=== PATIENT | male | born 1980 | race Caucasian/White ===

== ENCOUNTER 2021-11-30 17:28 | Emergency (ER) | payer OTHER, SELFPAY ==
--- NOTE | ~2021-11-30 | CT_ITS ---
EXAMINATION: CT abdomen pelvis wo con DATE: 11/30/2021 18:31 INDICATION: right flank pain TECHNIQUE: Computed tomography (CT) of the abdomen and pelvis was performed without intravenous contr ast. Automated exposure control and iterative reconstruction technique were employed. The dose-length product was 477.37 mGy-cm. COMPARISON: None FINDINGS: Lower thorax: Unremarkable Liver: Normal. Biliary/Gallbladder: No bile duct dilation. Pancreas: No mass or duct dilation. Spleen: Normal. Adrenals:No mass. Kidneys: No mass. Punctate nonobstructing bilateral renal calculi, more numerous on the right. Modera te right pelvis and calyceal dilation. 5 mm rounded calcification in the mid right ureter. GI tract: No small or large bowel dilation. Normal appendix. Mesentery/Peritoneum: No ascites, mass, or free air. Retroperitoneum: No mass. Pelvis: Pelvic organs are within normal limits. Soft Tissues: Fat-containing umbilical, midline ventral, and bilateral inguinal hernias. Bones: No acute osseous finding. IMPRESSION: 5 mm mid right ureteral stone causing moderate obstructive uropathy. Reviewed, dictated and finalized at location K.
[2021-11-30 17:37] VITALS: BP 149/97; PULSE 74; RESP 18; TEMP 36.4; O2SAT 100
[2021-11-30 18:16] LABS: Appearance Urine Clear (Clear); Bilirubin Urine Negative (Negative); Blood Urine 2+ (Negative); Color Urine Yellow (Yellow); Glucose Urine UA Negative (Negative); Ketones Urine Negative (Negative); Leukocyte Esterase Ur Negative LEU/UL (Negative); Nitrate Urine Negative (Negative); Protein Urine Negative (Negative); Specific Grav Ur 1.015 (1.001-1.035); Urobilinogen Urine 0.2 mg/dL (<2.0); pH Urine 5.5 (5.0-9.0)
--- NOTE | 2021-11-30 18:22 | ED.MALEGU ---
HPI - Male Genitourinary General Chief complaint: Urogenital-Male <Mick Alvarez APRN - Last Filed: 11/30/21 19:39> Stated complaint: kidney stones <Mick Alvarez APRN - Last Filed: 11/30/21 19:39> Time Seen by Provider: 11/30/21 18:17 <Mick Alvarez APRN - Last Filed: 11/30/21 19:39> History of Present Illness HPI Narrative: 41-year-old male presents to the emergency room for evaluation of right flank pain since yesterday patient has a significant history of kidney stones, requiring lithotripsy and stent placement. Patient states that he normally drinks a gallon of water when he feels like he is having a kidney stone, however this time he became nauseated was unable to keep fluids down. Patient notes a obvious hematuria. Denies fever <Mick Alvarez APRN - Last Filed: 11/30/21 19:39> Related Data Allergies/Adverse reactions: Allergies Allergy/AdvReac Type Severity Reaction Status Date / Time No Known Allergies Allergy Verified 11/30/21 18:44 <Mick Alvarez APRN - Last Filed: 11/30/21 19:39> Review of Systems Review of Systems: CONSTITUTIONAL: Denies fever, chills, or sweats. EYES: Denies visual changes, redness, or discharge. ENT: Denies rhinorrhea, congestion, sore throat, or otalgia. CARDIOVASCULAR: Denies chest pain, palpitations, or edema. RESPIRATORY: Denies cough or dyspnea. GASTROINTESTINAL: Denies abdominal pain, nausea, vomiting, or diarrhea. GENITOURINARY: Reports right flank pain, hematuria SKIN: Denies rash or itching. MUSCULOSKELETAL: Denies back pain, joint pain, or myalgia. NEUROLOGIC: Denies headache, numbness, dizziness, or weakness. PSYCHIATRIC: Denies anxiety or depression. <Mick Alvarez APRN - Last Filed: 11/30/21 19:39> Exam Narrative: GENERAL: Well-appearing, well-nourished, and in no acute distress. HEAD: Normocephalic, atraumatic. EYES: PERRLA and EOMI. CHEST: Clear to auscultation. No respiratory distress. No wheezes rales or rhonchi HEART: Regular rate and rhythm. No murmur heard. Normal peripheral pulses. ABDOMEN: Right CVA tenderness EXTREMITIES: Normal range of motion. No edema. SKIN: Warm, dry, no rash. NEURO: No focal deficits. Alert and oriented x3. PSYCH: Normal mood and affect. <Mick Alvarez APRN - Last Filed: 11/30/21 19:39> Course Course Emergency Course: 1929: Discussed case with Dr. Quispe, he is agreeable to having patient follow-up with urology in 1 week. <Mick Alvarez SOFTWARE CONTROLS ENGINEER - Last Filed: 11/30/21 19:39> Vital Signs Vital signs: Vital Signs Temperature 97.6 F 11/30/21 17:37 Pulse Rate 74 11/30/21 17:37 Respiratory Rate 18 11/30/21 17:37 Blood Pressure 149/97 H 11/30/21 17:37 Pulse Oximetry 100 11/30/21 17:37 Temperature 97.6 F 11/30/21 17:37 Pulse Rate 73 11/30/21 18:48 Respiratory Rate 15 11/30/21 18:48 Blood Pressure 132/89 11/30/21 18:48 Pulse Oximetry 96 11/30/21 18:48 <Mick Alvarez SOFTWARE CONTROLS ENGINEER - Last Filed: 11/30/21 19:39> MDM - Male Genitourinary MDM Narrative Medical decision making narrative: 41-year-old male with a history of kidney stones presents the emergency room with evaluation for right flank pain. CT scan shows a 5 mm mid ureteral stone with moderate hydronephrosis. CBC shows a mild leukocytosis of 14, kidney function unremarkable, UA shows no urinary tract infection. Discussed case with Dr. Quispe. He recommends patient follow-up with urology in 1 week, go home with a strainer. Return if symptoms do not improve. <Mick Alvarez APRN - Last Filed: 11/30/21 19:39> Lab Data Result diagrams: : 11/30/21 18:36 11/30/21 18:36 <Mick Alvarez APRN - Last Filed: 11/30/21 19:39> Labs: Lab Results 11/30/21 11/30/21 11/30/21 Range/Units 17:50 18:36 18:36 WBC 14.0 H (4.5-10.0) K/mm3 RBC 5.31 (4.6-6.20) M/mm3 Hgb 14.7 (14.0-18.0) g/dL Hct 44.8 (42.0-52.0) % MCV 84.4 (
[2021-11-30 18:43] LABS: Bacteria Urine Trace /hpf; Mucus Urine Rare /lpf
[2021-11-30] MEDS: KETOROLAC 30 MG/ML VIAL (*BKC) IV PUSH (18:45)
[2021-11-30] MEDS: SODIUM CHLORIDE 0.9% IV 1,000 ML 999 ML IV CONT (18:45)
[2021-11-30] MEDS: Please add drug allergy info to patient profile. 1 EACH XX (18:45)
[2021-11-30] MEDS: ONDANSETRON INJ 4 MG/2 ML VIAL IV PUSH (18:45)
[2021-11-30 18:46] LABS: Add Urine Microscopic? YES
[2021-11-30 18:47] LABS: Basophils Absolute Auto 0.1 K/mm3 (0.0-0.1); Basophils Percent Auto 0.4 % (0.2-1.2); Eosinophils Percent Auto 0.2 % (0-4.4); Hematocrit 44.8 % (42.0-52.0); Hemoglobin 14.7 g/dL (14.0-18.0); Immature Granulocyte Absolute 0.06 K/mm3 (0.00-0.031); Immature Granulocyte Percent A 0.4 % (0-0.5); Lymphocytes Percent Auto 7.1 % (18.3-44.2); Mean Corpuscular HGB Conc 32.8 g/dl (32-36); Mean Corpuscular Hemoglobin 27.7 pg (26-34); Mean Corpuscular Volume 84.4 fl (80-100); Mean Platelet Volume 11.9 fl (7.4-10.4); Monocytes Absolute Auto 0.7 K/mm3 (0.1-0.6); Monocytes Percent Auto 4.9 % (2.6-8.5); Neutrophils Absolute Auto 12.2 K/mm3 (1.3-6.7); Platelet Count Result 187 k/mm3 (150-375); Red Blood Count 5.31 M/mm3 (4.6-6.20); Red Cell Distribution Width 13.1 % (11.5-14.5)
[2021-11-30 18:48] VITALS: BP 132/89; PULSE 73; RESP 15; O2SAT 96
[2021-11-30 19:10] LABS: Alanine Aminotransferase 22 U/L (6-50); Albumin Level 4.3 g/dL (3.5-5.1); Alkaline Phosphatase 63 U/L (38-126); Anion Gap 7 mmol/L (8-16); Aspartate Amino Transferase 28 U/L (17-59); Bilirubin,Total 0.6 mg/dL (0.2-1.3); Blood Urea Nitrogen 13 mg/dL (9-20); Calcium 8.8 mg/dL (8.4-10.2); Carbon Dioxide 24 mmol/L (22-30); Chloride 105 mmol/L (98-107); Estimated CRCL calculation 145 ml/min; Estimated Glomerular Filt Rate > 60; Glucose 115 mg/dL (65-110); Potassium 4.1 mmol/L (3.4-5.0); Sodium 136 mmol/L (137-145)
== END 2021-11-30 20:16 | disposition home or self-care (01) ==
LOC: ANHED 19:34
PROVIDERS: Emergency Medicine; Emergency Provider Nurse Practitioner Family; PCP Internal Medicine
DX: N20.0 Calculus of kidney (principal)
CPT/HCPCS: 36415; 74176; 80053; 81001; 85025; 96361; 96374; 96375; 99284; J1885; J2405; J7030

== ENCOUNTER 2021-12-06 15:01 | Outpatient (CLI) | payer OTHER, SELFPAY ==
--- NOTE | ~2021-12-06 | XR_ITS ---
XR abdomen/kub 1V 12/06/2021 15:17 INDICATION: Right ureteral stone TECHNIQUE: KUB COMPARISON: None FINDINGS: Bowel gas pattern is normal. There is no evidence of free air, mass, organomegaly, ascites or obstruction. No abnormal calculi are seen. The bones appear intact. IMPRESSION: 1: No acute abdominal abnormality identified. Reviewed, dictated and finalized at location A.
== END 2021-12-06 15:02 | disposition home or self-care (01) ==
PROVIDERS: PCP Internal Medicine; Visit Provider Urology
DX: N20.1 Calculus of ureter (principal)
CPT/HCPCS: 74018

== ENCOUNTER 2021-12-07 14:25 | Outpatient (CLI) | payer OTHER, SELFPAY ==
--- NOTE | ~2021-12-07 | XR_ITS ---
XR abdomen/kub 1V 12/07/2021 14:42 INDICATION: Right ureteral stone TECHNIQUE: KUB COMPARISON: 12/06/2021 FINDINGS: Bowel gas pattern is normal. There is no evidence of free air, mass, organomegaly, ascites or obstruction. No abnormal calculi are seen. The bones appear intact. IMPRESSION: 1: No acute abdominal abnormality identified. Reviewed, dictated and finalized at location A.
--- NOTE | ~2021-12-07 | CT_ITS ---
EXAMINATION: CT abdomen pelvis wo con DATE: 12/07/2021 14:46 INDICATION: Right flank pain and hematuria TECHNIQUE: Computed tomography (CT) of the abdomen and pelvis was performed without intravenous contr ast. Automated exposure control and iterative reconstruction technique were employed. The dose-length product was 485.23 mGy-cm. COMPARISON: None FINDINGS: Lung bases are clear. Heart size is normal. No pericardial or pleural effusion. Liver, gallbladder, s pleen, pancreas, bilateral adrenal glands are normal. A couple 1-2 mm nonobstructing stones in a lowe r pole calyx of the left kidney. 2-3 mm stone in the mid right ureter with mild right hydronephrosis. There are 4 additional 102 mm stones in the right kidney. Decompressed bladder is normal. Bowels inc luding the appendix are normal. No free intraperitoneal gas or fluid. No pathologically enlarged abdo ronal or pelvic lymphadenopathy. Small fat-containing umbilical and supraumbilical ventral hernias. 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 IMPRESSION: 1. Bilateral nephrolithiasis with fat least partially obstructing 2-3 mm mid right ureteral stone wit h mild right hydronephrosis. Reviewed, dictated and finalized at location B. IMPRESSION: 1. Bilateral nephrolithiasis with fat least partially obstructing 2-3 mm mid ri ght ureteral stone with mild right hydronephrosis.
== END 2021-12-07 14:26 | disposition home or self-care (01) ==
PROVIDERS: PCP Internal Medicine; Visit Provider Urology
DX: N20.0 Calculus of kidney (principal)
CPT/HCPCS: 74018; 74176

== ENCOUNTER 2022-06-26 10:24 | Outpatient (CLI) | payer OTHER, SELFPAY ==
--- NOTE | ~2022-06-26 | XR_ITS ---
Supine and upright views of the abdomen Clinical history: Right ureteral stone COMPARISON: 12/07/2021 Findings: Bowel gas pattern is nonspecific. No evidence for obstruction or free air. No abnormal mass lesion or calcification is seen. Osseous structures are intact. Impression: No significant abnormality is seen. Reviewed, dictated and finalized at [facility]. ER Impression: No significant abnormality is seen.
== END 2022-06-26 10:25 | disposition home or self-care (01) ==
PROVIDERS: PCP Internal Medicine; Visit Provider Urology
DX: N20.1 Calculus of ureter (principal)
CPT/HCPCS: 74018

== ENCOUNTER 2022-07-24 14:59 | Emergency (ER) | payer OTHER, SELFPAY ==
--- NOTE | ~2022-07-24 | XR_ITS ---
EXAM: XR toe 1st LT min 2V DATE: 07/24/2022 15:21 HISTORY: DROPPED TREADMILL ON DISTAL 1ST TOE . COMPARISON: None available. FINDINGS: Normal mineralization. Minimal comminution of the left first distal phalanx. No lytic or b lastic lesion. Scattered mild degenerative change. No erosion or periosteal change. Soft tissues with in normal limits. IMPRESSION: Minimally comminuted fractures of the left first distal phalanx. Reviewed, dictated and finalized at location K. WEIGHMASTER
--- NOTE | 2022-07-24 15:02 | ED.LOWEXIN ---
HPI - Extremity Injury (Lower) General Chief Complaint: Extremity Injury, Lower Stated Complaint: toe injury Time Seen by Provider: 07/24/22 15:26 Source: patient and RN notes reviewed Mode of arrival: ambulatory Limitations: no limitations History of Present Illness HPI Narrative: 41-year-old male presents with concern for injury to the 1st digit of the last foot. He reports yesterday he dropped a piece of equipment on the toe causing bruising and feeling of pressure on the nail. He reports worsening pain with weight-bearing. He denies any open skin. MD complaint: foot injury Related Data Allergies Allergy/AdvReac Type Severity Reaction Status Date / Time No Known Allergies Allergy Verified 07/24/22 15:02 Review of Systems Review of Systems: CONSTITUTIONAL: Denies malaise, chills, sweats, or fever. SKIN: Denies rash or itching, open skin, laceration, abrasion, redness, warmth, swelling. Reports discoloration under the toenail the 1st digit of loss MUSCULOSKELETAL: Reports pain in the 1st digit of the left foot NEUROLOGIC: Denies numbness, weakness All systems reviewed & are unremarkable except as noted in HPI and below PMFSH Comments At time of signature, agree with nursing past medical, surgical, social and family history. There is no relevant family history pertinent to the presenting complaint Exam Narrative: GENERAL: Well-appearing, well-nourished, and in no acute distress. HEAD: Normocephalic, atraumatic. EYES: PERRLA, conjunctivae clear NECK: Supple. CHEST: Speaks in full sentences. No respiratory distress. HEART: Regular rate and rhythm. Normal and equal peripheral pulses. EXTREMITIES: 1st digit of left foot has normal strength and sensation, grossly normal range of motion. No edema. Significant Ecchymosis she the 1st digit. 5/5 strength with digit flexion and extension. Normal sensation with sensitivity to light touch and pain. General digit tenderness. No open wounds, no skin tenting, no devitalized tissue or atrophy, no trophic changes, no obvious deformity, alignment normal, nearby joints and structures intact. Distal pulses palpable and equal bilaterally, skin warm, dry, pink. Capillary refill less than 3 seconds. SKIN: Warm, dry, no rash. Subungual hematoma noted to the 1st digit of the left foot NEURO: Alert and oriented x3. PSYCH: Normal mood and affect Course Course Emergency Course: After trephination Toe dalila-taped, patient wearing firm soled shoes. Discussed prophylactic antibiotic after trephination with fracture Patient is aware of diagnosis, understands and agrees to treatment plan. Anticipatory guidance given. Patient agrees to follow-up as directed and is aware of reasons to seek care at the emergency department. Portions of this record may have been created with voice recognition software Level of Care: Express Care Visit Vital Signs Vital signs: Reviewed. Procedures Nail Trephination Nail Trephination #1: Nail Trephination Date: 07/24/22 Nail Trephination Time: 15:29 Time out: Yes Location (toes): first digit Sterile prep: betadine Method of drainage: nail cautery Procedure successful: Yes Patient tolerated procedure: well MDM - Extremity Injury (Lower) MDM Narrative Medical decision making narrative: Patients injury and pain is consistent with musculoskeletal etiology. No signs of neurological or vascular compromise on exam. Compartments and tissues are soft without signs of compartment syndrome. Pain is felt appropriate for further evaluation on an outpatient basis. Critical Care Time Critical Care Time Critical Care Time: No Discharge Plan Discharge Clinical Impression: Subungual hematoma, Fracture of toe of left foot Patient Disposition: Home, Self-Care Condition: Stable Instructions: Subungual Hematoma (ED), Toe Fracture (ED) Additional Instructions: Avoid activities that cause pain until the pain subsid
[2022-07-24 15:05] VITALS: BP 136/97; PULSE 70; RESP 16; TEMP 36.6; O2SAT 99
== END 2022-07-24 15:48 | disposition home or self-care (01) ==
PROVIDERS: Emergency Provider Nurse Practitioner; PCP Internal Medicine
DX: S90.212A Contusion of left great toe with damage to nail, initial encounter (principal); S92.422A Displaced fracture of distal phalanx of left great toe, initial encounter for closed fracture; W20.8XXA Other cause of strike by thrown, projected or falling object, initial encounter
CPT/HCPCS: 11740; 73660; 99213; G0463

== ENCOUNTER → 2023-06-26 12:23 | Outpatient (CLI) | payer OTHER, SELFPAY ==
--- NOTE | ~2023-06-26 | XR_ITS ---
Supine and upright views of the abdomen Clinical history: Ureteral stone COMPARISON: 06/26/2022 Findings: Bowel gas pattern is nonspecific. No evidence for obstruction or free air. No abnormal mass lesion or calcification is seen. Osseous structures are intact. Impression: No significant abnormality is seen. Reviewed, dictated and finalized at [facility]. ON ACCOUNTANT Impression: No significant abnormality is seen.
== END ==
PROVIDERS: PCP Urology; Visit Provider Urology
DX: N20.1 Calculus of ureter (principal)
CPT/HCPCS: 74018

== ENCOUNTER 2024-06-30 17:29 | Emergency (ER) | payer OTHER, SELFPAY ==
--- NOTE | ~2024-06-30 | CT_ITS ---
EXAMINATION: CT abdomen pelvis wo con DATE: 06/30/2024 18:36 INDICATION: Right flank pain. TECHNIQUE: Computed tomography (CT) of the abdomen and pelvis was performed without intravenous contr ast. Automated exposure control and iterative reconstruction technique were employed. The dose-length product was 570.11 mGy-cm. COMPARISON: CT abdomen and pelvis 12/07/2021 FINDINGS: The visualized portions of the lung bases demonstrates 3 mm nodule in right lower lobe, lik ridge benign. No pleural effusion. The heart size is normal. No pericardial effusion. The liver, gallbl adder, spleen, pancreas, and adrenal glands are normal. There are two 1-2 mm stones in right kidney. There is moderate right hydronephrosis and proximal hydroureter. There is a 5 mm stone in proximal ri ght ureter. There is a 2 mm stone in left kidney. There is diverticulosis of the colon without eviden ce of diverticulitis. There are no dilated loops of bowel. The appendix is normal. There are no patho logically enlarged lymph nodes. There is no free intraperitoneal fluid. There are umbilical and supra umbilical ventral hernias containing fat. There is mild thoracic and lumbar spondylosis. IMPRESSION: 1. 5 mm stone in proximal right ureter with mild right hydronephrosis and proximal hydroureter. 2. Small bilateral nonobstructing kidney stones. 3. Umbilical hernia and supraumbilical ventral hernia containing fat. Reviewed, dictated and finalized at location A. D CUSTODY EVALUATOR IMPRESSION: 1. 5 mm stone in proximal right ureter with mild right hydronephrosis and proxi mal hydroureter. 2. Small bilateral nonobstructing kidney stones. 3. Umbilical hernia and supraumbilical ventral hernia containing fat.
--- NOTE | ~2024-06-30 | XR_ITS ---
EXAMINATION: XR abdomen/kub 1V DATE: 06/30/2024 21:23 INDICATION: Right renal stone. TECHNIQUE: A supine view of the abdomen on 2 radiographs was obtained. COMPARISON: CT abdomen and pelvis 06/30/2024 FINDINGS: There are no dilated loops of bowel. There are 5 mm and 2 mm stones in right ureter at L5. IMPRESSION: 1. 5 mm and 2 mm stones in proximal right ureter. Reviewed, dictated and finalized at location A. YL NITRATOR OPERATOR
[2024-06-30 18:22] VITALS: BP 185/87; PULSE 74; RESP 20; TEMP 36.7; O2SAT 100
--- NOTE | 2024-06-30 18:23 | ED.GENADULT ---
HPI - General Adult General Chief complaint: Back Pain/Injury <Sai Michelle APRN - Last Filed: 06/30/24 18:25> Stated complaint: KIDNEY STONES <Sai Michelle APRN - Last Filed: 06/30/24 18:25> Time Seen by Provider: 06/30/24 18:39 <Sai Michelle APRN - Last Filed: 06/30/24 18:25> 43 y/o male presents with right flank pain and n/v that started at 1300 today. patient has a hx of kidney stone and concerned he has another one. patient denies any other symptoms general: A&OX3 BS CTA ABD: soft, right cva tenderness ext: patient moving all extremities skin: warm and dry <Sai Michelle APRN - Last Filed: 06/30/24 18:25> History of Present Illness HPI narrative: Right flank pain moving and abdomen worsening over last few hours. Agree with HPI. <Fritz Shearer MD - Last Filed: 06/30/24 21:35> Related Data Allergies/adverse reactions: Allergies Allergy/AdvReac Type Severity Reaction Status Date / Time No Known Allergies Allergy Verified 06/30/24 17:29 <Sai Michelle APRN - Last Filed: 06/30/24 18:25> Review of Systems Review of Systems: All systems reviewed & are unremarkable except as noted in HPI and below <Fritz Shearer MD - Last Filed: 06/30/24 21:35> Constitutional: Constitutional: Reports no additional constitutional complaints <Fritz Shearer MD - Last Filed: 06/30/24 21:35> Cardiovascular: Cardiovascular: Reports no additional cardiovascular complaints <Fritz Shearer MD - Last Filed: 06/30/24 21:35> Respiratory: Respiratory: Reports no additional respiratory complaints <Fritz Shearer MD - Last Filed: 06/30/24 21:35> Gastrointestinal: Gastrointestinal: Reports abdominal pain, Denies diarrhea, Reports nausea and Reports vomiting <Fritz Shearer MD - Last Filed: 06/30/24 21:35> Genitourinary: Genitourinary: Reports no additional male genitourinary complaints <Fritz Shearer MD - Last Filed: 06/30/24 21:35> [facility] Past Medical History Medical History: Medical History (Updated 06/30/24 @ 21:32 by Fritz Shearer MD) Nephrolithiasis <Sai Michelle APRN - Last Filed: 06/30/24 18:25> Social History Social History: Social History Smoking status: Smoker, status unknown <Sai Michelle APRN - Last Filed: 06/30/24 18:25> Exam Narrative: GENERAL: Well-appearing, well-nourished, and in no acute distress. HEAD: Normocephalic, atraumatic. ENT: Mucous membranes moist. CHEST: Clear to auscultation. No respiratory distress. HEART: Regular rate and rhythm. Normal peripheral pulses. ABDOMEN: Soft, nontender, nondistended. EXTREMITIES: Normal range of motion. No edema. SKIN: Warm, dry, no rash. NEURO: Alert and oriented x3. PSYCH: Normal mood and affect. <Fritz Shearer MD - Last Filed: 06/30/24 21:35> Course Course Emergency Course: Pain improved with Toradol/morphine 8 mg. Discharge or supportive care. Urology consulted and requests KUB. <Fritz Shearer MD - Last Filed: 06/30/24 21:35> Vital Signs Vital signs: Vital Signs Temperature 98.1 F 06/30/24 18:22 Pulse Rate 74 06/30/24 18:22 Respiratory Rate 20 06/30/24 18:22 Blood Pressure 185/87 H 06/30/24 18:22 Pulse Oximetry 100 06/30/24 18:22 Oxygen Delivery Room Air 06/30/24 18:22 Temperature 98.1 F 06/30/24 18:22 Pulse Rate 74 06/30/24 18:22 Respiratory Rate 20 06/30/24 18:22 Blood Pressure 185/87 H 06/30/24 18:22 Pulse Oximetry 100 06/30/24 18:22 Oxygen Delivery Room Air 06/30/24 18:22 <Sai Michelle APRN - Last Filed: 06/30/24 18:25> Vital Signs Temperature 98.1 F 06/30/24 18:22 Pulse Rate 74 06/30/24 18:22 Respiratory Rate 20 06/30/24 18:22 Blood Pressure 185/87 H 06/30/24 18:22 Pulse Oximetry 100 06/30/24 18:22 Oxygen Delivery Room Air 06/30/24 18:22 Temperature 98.1 F 06/30/24 18:22 Pulse Rate 74 06/30/24 18:22 Respiratory Rate 20 06/30/24 18:22 Blood Pressure 185/87 H 06/30/24 18:22 Pulse Oximetry 100 06/30/24 18:22 Oxygen Delivery Room Air 06/30/24 18:22 <Fritz Shearer MD - Last Filed: 06/30/24 21:35> Medical Decision Making Vital Signs Vital Signs: Vital Signs Temperature 98.1 F 06/30/24 18:22 Pulse Rate 74 06/30/24 18:22 Respiratory Rate 20 06/30/24 18:22 Blood Pressure 185/87 H 06/30/24 18:22 Pulse Oximetry 100 06/30/24 18:22 Oxygen Delivery Room Air 06/30/24 18:22 Temperature 98.1 F 06/30/24 18:22 Pulse Rate 74 06/30/24 18:22 Respiratory Rate 20 06/30/24 18:22 Blood Pressure 185/87 H 06/30/24 18:22 Pulse Oximetry 100 06/30/24 18:22 Oxygen Delivery Room Air 06/30/24 18:22 <Sai Michelle APRN - Last Filed: 06/30/24 18:25> Vital Signs Temperature 98.1 F 06/30/24 18:22 Pulse Rate 74 06/30/24 18:22 Respiratory Rate 20 06/30/24 18:22 Blood Pressure 185/87 H 06/30/24 18:22 Pulse Oximetry 100 06/30/24 18:22 Oxygen Delivery Room Air 06/30/24 18:22 Temperature 98.1 F 06/30/24 18:22 Pulse Rate 74 06/30/24 18:22 Respiratory Rate 20 06/30/24 18:22 Blood Pressure 185/87 H 06/30/24 18:22 Pulse Oximetry 100 06/30/24 18:22 Oxygen Delivery Room Air 06/30/24 18:22 <Fritz Shearer MD - Last Filed: 06/30/24 21:35> Lab Data Result diagrams: 06/30/24 18:48 06/30/24 18:48 <Sai Michelle, FINISH REPAIRER - Last Filed: 06/30/24 18:25> Labs: Lab Results 06/30/24 06/30/24 Range/Units 18:48 20:34 WBC 14.4 H (4.5-10.0) K/mm3 RBC 5.32 (4.6-6.20) M/mm3 Hgb 14.8 (14.0-18.0) g/dL Hct 44.5 (42.0-52.0) % MCV 83.6 (80-100) fl MCH 27.8 (26-34) pg MCHC 33.3 (32-36) g/dl RDW 13.3 (11.5-14.5) % Plt Count 187 (150-375) k/mm3 MPV 11.7 H (7.4-10.4) fl Immature Gran % (Auto) 0.3 (0-0.5) % Neut % (Auto) 85.7 H (45.5-73.1) % Lymph % (Auto) 8.5 L (18.3-44.2) % [place] % (Auto) 4.9 (2.6-8.5) % Eos % (Auto) 0.3 (0-4.4) % Baso % (Auto) 0.3 (0.2-1.2) % Lymph # (Auto) 1.22 (0.9-3.2) K/mm3 [place] # (Auto) 0.7 H (0.1-0.6) K/mm3 Eos # (Auto) 0.0 (0-0.3) K/mm3 Baso # (Auto) 0.1 (0.0-0.1) K/mm3 Abs Immat Gran (auto) 0.04 H (0.00-0.031) K/mm3 Absolute Neuts (auto) 12.3 H (1.3-6.7) K/mm3 Absolute Nucleated RBC 0.000 (0.0-0.012) K/mm3 Nucleated RBC % 0.0 (0.0-0.2) % Sodium 138 (137-145) mmol/L Potassium 3.9 (3.4-5.0) mmol/L Chloride 105 (98-107) mmol/L Carbon Dioxide 27 (22-30) mmol/L Anion Gap 6 (4-12) mmol/L BUN 16 (9-20) mg/dL Creatinine 1.00 (0.7-1.3) mg/dL Estim Creat Clear Calc 108 ml/min Estimated GFR > 60 (59 - ) Glucose 116 H (65-110) mg/dL Calcium 9.5 (8.4-10.2) mg/dL Total Bilirubin 0.7 (0.2-1.3) mg/dL AST 28 (17-59) U/L ALT 25 (6-50) U/L Alkaline Phosphatase 73 (38-126) U/L Total Protein 8.0 (6.3-8.2) g/dL Albumin 4.5 (3.5-5.1) g/dL Lipase 100 (23-300) U/L Urine Color Yellow (Yellow) Urine Appearance Clear (Clear) Urine pH 8.0 (5.0-9.0) Ur Specific [place] 1.014 (1.001-1.035) Urine Protein Negative (Negative) mg/dL Urine Glucose (UA) Negative (Negative) mg/dL Urine Ketones Negative (Negative) mg/dL Ur Blood (Man) 1+ H (Negative) Urine Nitrate Negative (Negative) Urine Bilirubin Negative (Negative) Urine Urobilinogen 0.2 (<2.0) mg/dL Leukocyte Esterase Rfl Negative (Negative) UMA/UL Urine RBC 11-20 H (0-2) /hpf Urine WBC 0-5 (0-3) /hpf Ur Squamous Epith Cells None seen (Few) /hpf Urine Bacteria None seen /hpf Urine Casts 0-2 <Sai Michelle, FINISH REPAIRER - Last Filed: 06/30/24 18:25> Lab Results 06/30/24 06/30/24 Range/Units 18:48 20:34 WBC 14.4 H (4.5-10.0) K/mm3 RBC 5.32 (4.6-6.20) M/mm3 Hgb 14.8 (14.0-18.0) g/dL Hct 44.5 (42.0-52.0) % MCV 83.6 (80-100) fl MCH 27.8 (26-34) pg MCHC 33.3 (32-36) g/dl RDW 13.3 (11.5-14.5) % Plt Count 187 (150-375) k/mm3 MPV 11.7 H (7.4-10.4) fl Immature Gran % (Auto) 0.3 (0-0.5) % Neut % (Auto) 85.7 H (45.5-73.1) % Lymph % (Auto) 8.5 L (18.3-44.2) % [place] % (Auto) 4.9 (2.6-8.5) % Eos % (Auto) 0.3 (0-4.4) % Baso % (Auto) 0.3 (0.2-1.2) % Lymph # (Auto) 1.22 (0.9-3.2) K/mm3 [place] # (Auto) 0.7 H (0.1-0.6) K/mm3 Eos # (Auto) 0.0 (0-0.3) K/mm3 Baso # (Auto) 0.1 (0.0-0.1) K/mm3 Abs Immat Gran (auto) 0.04 H (0.00-0.031) K/mm3 Absolute Neuts (auto) 12.3 H (1.3-6.7) K/mm3 Absolute Nucleated RBC 0.000 (0.0-0.012) K/mm3 Nucleated RBC % 0.0 (0.0-0.2) % Sodium 138 (137-145) mmol/L Potassium 3.9 (3.4-5.0) mmol/L Chloride 105 (98-107) mmol/L Carbon Dioxide 27 (22-30) mmol/L Anion Gap 6 (4-12) mmol/L BUN 16 (9-20) mg/dL Creatinine 1.00 (0.7-1.3) mg/dL Estim Creat Clear Calc 108 ml/min Estimated GFR > 60 (59 - ) Glucose 116 H (65-110) mg/dL Calcium 9.5 (8.4-10.2) mg/dL Total Bilirubin 0.7 (0.2-1.3) mg/dL AST 28 (17-59) U/L ALT 25 (6-50) U/L Alkaline Phosphatase 73 (38-126) U/L Total Protein 8.0 (6.3-8.2) g/dL Albumin 4.5 (3.5-5.1) g/dL Lipase 100 (23-300) U/L Urine Color Yellow (Yellow) Urine Appearance Clear (Clear) Urine pH 8.0 (5.0-9.0) Ur Specific [place] 1.014 (1.001-1.035) Urine Protein Negative (Negative) mg/dL Urine Glucose (UA) Negative (Negative) mg/dL Urine Ketones Negative (Negative) mg/dL Ur Blood (Man) 1+ H (Negative) Urine Nitrate Negative (Negative) Urine Bilirubin Negative (Negative) Urine Urobilinogen 0.2 (<2.0) mg/dL Leukocyte Esterase Rfl Negative (Negative) UMA/UL Urine RBC 11-20 H (0-2) /hpf Urine WBC 0-5 (0-3) /hpf Ur Squamous Epith Cells None seen (Few) /hpf Urine Bacteria None seen /hpf Urine Casts 0-2 <Fritz Shearer MD - Last Filed: 06/30/24 21:35> Imaging Data Radiologist's impression: ITS Impressions Abdomen/Pelvis CT 06/30/24 18:39 IMPRESSION: 1. 5 mm stone in proximal right ureter with mild right hydronephrosis and proximal hydroureter. 2. Small bilateral nonobstructing kidney stones. 3. Umbilical hernia and supraumbilical ventral hernia containing fat. <Fritz Shearer MD - Last Filed: 06/30/24 21:35> Discharge Plan Discharge Clinical Impression: Ureterolithiasis <Sai Michelle APRN - Last Filed: 06/30/24 18:25> Patient Disposition: Home, Self-Care <Sai Michelle APRN - Last Filed: 06/30/24 18:25> Condition: Stable <Sai Michelle APRN - Last Filed: 06/30/24 18:25> Instructions: Kidney Stones (ED) <Sai Michelle APRN - Last Filed: 06/30/24 18:25> Additional Instructions: Return to the emergency department if you develop severe abdominal pain, severe nausea and vomiting to the point where you are unable to keep down fluids, if you develop chest pain or difficulty breathing, blood in your stool, dizziness or fainting, or if you develop any other new or concerning symptoms as these could be signs of more serious medical illness. Try to stay well hydrated. <Sai Michelle APRN - Last Filed: 06/30/24 18:25> Patient Language: B[place]udian <Sai Michelle APRN - Last Filed: 06/30/24 18:25> Prescriptions: New hydrocodone-acetaminophen 5-325 mg tablet 1 tablet PO Q6H PRN (Reason: pain) Qty: 20 0RF ondansetron 4 mg tablet,disintegrating 4 mg PO Q6H PRN (Reason: nausea and vomiting) Qty: 10 0RF No Action amoxicillin-pot clavulanate 875-125 mg tablet 1 tablet PO Q12H 10 Days Qty: 20 0RF <Sai Michelle APRN - Last Filed: 06/30/24 18:25> Follow-up/Referrals: Richard Marr MD [Physician] - 1 Week <Sai Michelle APRN - Last Filed: 06/30/24 18:25>
[2024-06-30] MEDS: SODIUM CHLORIDE 0.9% IV 1,000 ML 999 ML IV CONT (18:52)
[2024-06-30] MEDS: ONDANSETRON INJ 4 MG/2 ML VIAL IV PUSH (18:53)
[2024-06-30] MEDS: KETOROLAC 30 MG/ML VIAL (*BKC) IV PUSH (18:53)
[2024-06-30 18:56] LABS: Basophils Absolute Auto 0.1 K/mm3 (0.0-0.1); Basophils Percent Auto 0.3 % (0.2-1.2); Eosinophils Percent Auto 0.3 % (0-4.4); Hematocrit 44.5 % (42.0-52.0); Hemoglobin 14.8 g/dL (14.0-18.0); Immature Granulocyte Absolute 0.04 K/mm3 (0.00-0.031); Immature Granulocyte Percent A 0.3 % (0-0.5); Lymphocytes Absolute Auto 1.22 K/mm3 (0.9-3.2); Lymphocytes Percent Auto 8.5 % (18.3-44.2); Mean Corpuscular HGB Conc 33.3 g/dl (32-36); Mean Corpuscular Hemoglobin 27.8 pg (26-34); Mean Corpuscular Volume 83.6 fl (80-100); Mean Platelet Volume 11.7 fl (7.4-10.4); Monocytes Absolute Auto 0.7 K/mm3 (0.1-0.6); Monocytes Percent Auto 4.9 % (2.6-8.5); Neutrophils Absolute Auto 12.3 K/mm3 (1.3-6.7); Neutrophils Percent Auto 85.7 % (45.5-73.1); Platelet Count Result 187 k/mm3 (150-375); Red Blood Count 5.32 M/mm3 (4.6-6.20); Red Cell Distribution Width 13.3 % (11.5-14.5); White Blood Count 14.4 K/mm3 (4.5-10.0)
[2024-06-30] MEDS: MORPHINE SULFATE (*CRX) 4 MG/ML INJ IV PUSH ×2 (18:57→20:50)
[2024-06-30 19:09] LABS: Alanine Aminotransferase 25 U/L (6-50); Albumin Level 4.5 g/dL (3.5-5.1); Alkaline Phosphatase 73 U/L (38-126); Anion Gap 6 mmol/L (4-12); Aspartate Amino Transferase 28 U/L (17-59); Bilirubin,Total 0.7 mg/dL (0.2-1.3); Blood Urea Nitrogen 16 mg/dL (9-20); Calcium 9.5 mg/dL (8.4-10.2); Carbon Dioxide 27 mmol/L (22-30); Chloride 105 mmol/L (98-107); Estimated CRCL calculation 108 ml/min; Estimated Glomerular Filt Rate > 60; Glucose 116 mg/dL (65-110); Lipase 100 U/L (23-300); Potassium 3.9 mmol/L (3.4-5.0); Sodium 138 mmol/L (137-145)
--- NOTE | 2024-06-30 20:46 | PC.NURSE ---
2036 Urine sample sent to lab.
[2024-06-30 21:03] LABS: Add Urine Microscopic? YES; Appearance Urine Clear (Clear); Bacteria Urine None Seen /hpf; Bilirubin Urine Negative (Negative); Blood Urine 1+ (Negative); Color Urine Yellow (Yellow); Glucose Urine UA Negative (Negative); Ketones Urine Negative (Negative); Leukocyte Esterase Ur Negative LEU/UL (Negative); Nitrate Urine Negative (Negative); Non Pathogenic Casts 0-2; Protein Urine Negative (Negative); Specific Grav Ur 1.014 (1.001-1.035); Squamous Epithelial Cell Urine None Seen /hpf (Few); Urobilinogen Urine 0.2 mg/dL (<2.0); WBC Urine 0-5 /hpf (0-3)
[2024-06-30 21:43] VITALS: BP 143/96; PULSE 74; RESP 15; O2SAT 95
== END 2024-06-30 21:45 | disposition home or self-care (01) ==
PROVIDERS: Nurse Practitioner Family; Emergency Provider Emergency Medicine
DX: N13.2 Hydronephrosis with renal and ureteral calculous obstruction (principal); Z87.442 Personal history of urinary calculi; K42.9 Umbilical hernia without obstruction or gangrene; K43.9 Ventral hernia without obstruction or gangrene
CPT/HCPCS: 36415; 74018; 74176; 80053; 81001; 83690; 85025; 96361; 96374; 96375; 96376; 99284; J1885; J2270; J2405; J7030

== ENCOUNTER 2024-07-04 09:05 | Outpatient (CLI) | payer OTHER, SELFPAY ==
--- NOTE | ~2024-07-04 | XR_ITS ---
EXAMINATION: XR abdomen/kub 1V DATE: 07/04/2024 09:23 INDICATION: Right ureteral stone. TECHNIQUE: A supine view of the abdomen on 2 radiographs was obtained. COMPARISON: Abdomen radiographs 06/30/2024, CT abdomen and pelvis 06/30/2024 FINDINGS: There are no dilated loops of bowel. There is a moderate volume of stool in the colon. Ther e is a phlebolith in right pelvis. IMPRESSION: 1. No visible urolithiasis. Reviewed, dictated and finalized at location A. EAD MOLD OPERATOR IMPRESSION: 1. No visible urolithiasis.
== END 2024-07-04 09:06 | disposition home or self-care (01) ==
PROVIDERS: PCP Internal Medicine; Visit Provider Urology
DX: N20.1 Calculus of ureter (principal)
CPT/HCPCS: 74018

== ENCOUNTER 2024-07-07 01:07 | Day surgery (SDC) | payer OTHER, SELFPAY ==
[2024-07-04 11:11] VITALS: BMI 37.3
--- NOTE | 2024-07-04 11:20 | PC.NURSE ---
Report to the Outpatient Waiting Room, entrance under the green pavilion located off [facility], at time _0800_ on date _[id number]_. Planned Procedure Time: _1000_.? Time changes happen often and if your time is changed the preop area will call you the afternoon before. - You and your visitor will be asked to self-screen and do not enter if you have any COVID symptoms. Please call surgeon if you need to reschedule. - A mask is optional within the hospital at this time. Patients may have clear liquids (water, carbonated beverages, clear teas, apple juice) until 3 hours prior to surgery with a maximum of 20 ounces. - No food from midnight until time of surgery and no smoking. This includes no chewing gum, candy or mints. Take only the following medications with a SIP of water on the morning of surgery: ___Pain and nausea medicine ok if needed. DO NOT STOP ANY OF YOUR OTHER PRESCRIPTION MEDICATIONS PRIOR TO SURGERY EXCEPT THE FOLLOWING Medications to discontinue per physician ____Patient is stopping his aspirin until after surgery. Date to take last dose Please no make-up, nail austrian, hairspray, perfume, deodorant, or body powder the day of surgery.? No jewelry (including any body piercings) or valuables the day of surgery, leave them at home.? Please take a shower or bath the night before, or the morning of, surgery with an antibacterial soap.? Wear comfortable, loose fitting clothing.? - Jewelry must be removed prior to entering the operating room.? Rings and piercings that are not removed may be cut off. - The hospital will not accept responsibility for valuables.? - Please leave all valuables, including medications, at home the day of surgery. If you are going home after surgery, a licensed vibratory pile driver must drive you home.? - NO public transportation without another adult if you receive anesthesia. - We recommend that an adult stay with you for 24 hours following discharge. - We also recommend that you do not drive, make important decision, drink alcoholic beverages, or take any drugs that were not prescribed by your health care provider for at least 24 hours after your discharge time. Follow any additional instructions given to you from your surgeon. Telephone instructions given to __Avtar__and asked if any additional questions and then verbalized understanding. Patient advised to call surgeon office or pre surgery nurse liaison [phone] if any additional questions.
[2024-07-07] VITALS (7 sets, daily range): BP systolic 100–154; BP diastolic 71–99; PULSE 57–82; RESP 13–17; TEMP 36.4–37.2; O2SAT 94–96; BMI 39.7
--- NOTE | ~2024-07-07 | XR_ITS ---
EXAMINATION: XR retrograde pyelogram RT DATE: 07/07/2024 11:22 INDICATION: Right ureteral stone. TECHNIQUE: 111 intraoperative fluoroscopic views of the abdomen and pelvis were obtained. I was not p resent. Fluoroscopy exposure time was 68 seconds. COMPARISON: CT abdomen and pelvis 06/30/2024 FINDINGS: The right-sided retrograde pyelogram demonstrates hydronephrosis. IMPRESSION: 1. Right-sided hydronephrosis. Reviewed, dictated and finalized at location A. NOLOGY PROFESSIONAL
--- NOTE | 2024-07-07 09:21 | WPDANESEPPF ---
Anes - Initial Pre Proc Eval Procedure: Operation Date: 07/07/24 10:00 Proposed Procedures p Cystoscopy, Right Ureteroscopy, Possible Right Retrograde Pyelogram, Possible Right Stone Extraction, Possible Right Stent Placement, Possible Holmium Laser - Richard Marr MD Date/Time: 07/07/24 09:21 Surgeon: Richard Marr MD Pre Op Diagnosis: right ureteral stone Pre Op Diagnosis: right ureteral stone Patient Data Age: 43 Gender: M Height: 1.73 m Weight: 118.7 kg Last Vital Signs Temp 98.9 F 07/07/24 08:24 Pulse 82 07/07/24 08:24 Resp 16 07/07/24 08:24 BP 130/97 H 07/07/24 08:24 Pulse Ox 95 07/07/24 08:24 O2 Del Method Room Air 07/07/24 08:24 Allergies Allergy/AdvReac Type Severity Reaction Status Date / Time No Known Allergies Allergy Verified 07/07/24 08:22 Home Medications ?Medication ?Instructions ?Recorded ?Confirmed ?Type hydrocodone 5 mg-acetaminophen 325 1 tablet PO Q6H PRN pain #20 tabs 06/30/24 07/07/24 Rx mg tablet ondansetron 4 mg disintegrating 4 mg PO Q6H PRN nausea and 06/30/24 07/04/24 Rx tablet vomiting #10 tabs tamsulosin 0.4 mg capsule 0.4 mg PO DAILY #7 caps 06/30/24 07/07/24 Rx aspirin 81 mg tablet,delayed 81 mg PO DAILY 07/04/24 07/07/24 History release (Adult Aspirin Regimen) Patient hx anesthesia problems: none Family hx anesthesia problems: none Results Review: All pre-operative results and documents have been reviewed as part of the pre-operative evaluation. FOR[facility]LY [facility] Past Medical History Medical History Morbid obesity with BMI of 40.0-44.9, adult Nephrolithiasis Social History Social History Smoking status: Former smoker Smoking end date: 07/04/10 Living arrangements: alone Spiritual care concerns: No Comments chart review reveals pt consistently has elevated blood pressures. spoke with pt at length regarding blood pressures and need to contact PCP for further evaluation. pt does not regularly see a PCP but verbalized understanding of need to schedule appointment for full physical workup. Anes - Eval Final PreProcedure Day of Procedure 07/07/24 09:21 Patient weight: morbidly obese Heart: regular rate and rhythm Lungs: clear to auscultation and decreased breath sounds Airway: Mallampati scale class II Neurological: alert and oriented Last oral intake: >/= 8 hours (solids) and 2 hours (liquids) ASA classification: II Emergent: no Anesthetic plan: proceed Anesthesia type and monitoring: general LMA Results Review: All pre-operative results and documents have been reviewed as part of the pre-operative evaluation. Informed Consent: The patient's anesthetic plan and its attendant risks and benefits were discussed with the patient/family/POA. Questions were solicited and answers provided to the satisfaction of the patient/family/POA.
--- NOTE | 2024-07-07 10:18 | WPDHPUPDATE1 ---
History and Physical Update Update Date/Time: 07/07/24 10:18 History and Physical has been reviewed, including an updated exam of the patient. There are NO changes in the patient's condition. Risks, benefits, and alternatives have been discussed and questions answered. Patient agrees to proceed with procedure.
[2024-07-07] MEDS: ceFAZolin 2 GM/D5W 50 ML 2 GM/50 ML BAG IVPB (10:31)
[2024-07-07] MEDS: LIDOCAINE 2% GEL UROJET 10 ML PKG MUCOUS MEM (10:40)
[2024-07-07] MEDS: LACTATED RINGERS 1,000 ML 30 ML IV CONT (11:24)
--- NOTE | 2024-07-07 12:13 | W.PM.PROC2 ---
Procedure Note - Detailed Date of Procedure 07/07/24 Pre-op Diagnosis Right ureteral stone Post-op Diagnosis Same Procedure Performed Cystoscopy, right ureteroscopy with laser lithotripsy, stone extraction, retrograde pyelogram Surgeon Richard Marr MD Anesthesia General Description of Procedure Patient is brought to the operative suite he was prepped draped in routine sterile fashion while in dorsal lithotomy position after the uneventful induction of a general LMA anesthetic. Cystoscopy was undertaken with a 19 F rigid cystoscope. There was no intravesical foreign body or neoplasm. He has minimal prostatic hyperplasia with no urethral strictures. Bladder mucosa is normal. There was no intravesical foreign body or neoplasm. A 0.035 in glidewire was advanced into his right renal pelvis. The distal ureter was dilated with an 8 F 10 F dilator. With placement of the wire I can feel his stone in the right mid ureter overlying the right sacroiliac joint. Ureteroscopy was undertaken with a 7.5 F flexible digital ureteral scope. The stone is fractured and the small pieces with a 200 micron Walter laser. All pieces were extracted with a 1.9 F disposable stone basket. At the termination of the procedure careful inspection of the ureter demonstrates mucosal hyperemia without significant edema and no compromise to the integrity of the ureteral mucosa. Retrograde pyelography shows some mild hydronephrosis without extravasation. Because of patient has extreme intolerance of stents in the past I opted not to place ureteral stent. Scopes and wires removed and he was taken to the recovery room in good condition. Drains No Packing No
[2024-07-07] MEDS: oxyCODONE HCL (*CRX) 5 MG TAB IR PO (12:39)
== END 2024-07-07 13:08 | disposition home or self-care (01) ==
PROVIDERS: PCP Internal Medicine; Visit Provider Urology
PROC: (CPT 52352; principal; 2024-07-07 10:00)
DX: N20.1 Calculus of ureter (principal); Z87.891 Personal history of nicotine dependence; E66.01 Morbid (severe) obesity due to excess calories; Z68.39 Body mass index [BMI] 39.0-39.9, adult
CPT/HCPCS: 52353; 74420; 82365; 88300; A9270; C1769; J0690; J1100; J2003; J2250; J2405; J2704; J3010; J7120; Q9966